=== PATIENT | female | born 1925 | race Caucasian/White ===

== ENCOUNTER → 2016-03-04 | Outpatient (CLI) | payer MEDICARE, OTHER | LOC: GMA 15:12 | PROVIDERS: ATTEND Nurse Practitioner Family | DX: L65.9 Nonscarring hair loss, unspecified (principal) ==

== ENCOUNTER → 2016-03-05 | Outpatient (CLI) | payer MEDICARE, OTHER ==
--- NOTE | 2016-03-05 09:27 | US ---
EXAM DESCRIPTION: US ABDOMEN CLINICAL HISTORY: GENERAL ABD PAIN COMPARISON: March 05, 2016 TECHNIQUE: Complete abdominal ultrasound was performed utilizing grayscale, color Doppler and spectral Doppler imaging. [employer] static images were saved to the patient's medical record. 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 It measures 2.5 cm in diameter. The liver is echogenic, but normal in size. No hepatic mass noted. Small cyst seen measuring 11 mm within the right hepatic lobe. Portal vein demonstrates normal directional flow. Common bile duct is prominent measuring 9 mm. The gallbladder is not visualized on today's study. Right kidney measures 9.2 cm in diameter. There is a lower pole 1.6 cm benign renal cyst noted. The spleen measures 10 cm in diameter. It is unremarkable. The left kidney is unremarkable except for a benign appearing 1.2 cm lower pole renal cyst. IMPRESSION: Today's exam demonstrates an echogenic liver compatible with fatty infiltration. Gallbladder has been removed. The common bile duct is prominent on today's exam measuring 9 mm in diameter. This can be seen in a post cholecystectomy state. 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 It measures 2.5 cm in diameter. Electronically signed by: Cory Andre MD 03/05/2016 09:25
== END ==
LOC: US 08:10
PROVIDERS: ATTEND Nurse Practitioner Family
DX: R10.84 Generalized abdominal pain (principal); I77.811 Abdominal aortic ectasia; Z90.49 Acquired absence of other specified parts of digestive tract

== ENCOUNTER → 2016-03-26 | Outpatient (CLI) | payer MEDICARE, OTHER | END | disposition home or self-care (01) | LOC: GMAL 11:29 | PROVIDERS: ATTEND Family Medicine | DX: E83.42 Hypomagnesemia (principal) ==

== ENCOUNTER → 2016-03-30 | Outpatient (CLI) | payer MEDICARE, OTHER ==
--- NOTE | 2016-03-31 09:48 | MAM ---
EXAM DESCRIPTION: MAMMO BREAST SCREENING BILATERAL CAD, images were reviewed with CAD technology, R2 computer-aided detection. CLINICAL HISTORY: [facility]. COMPARISON: 2012 and 2014. FINDINGS: Routine views are obtained. Scattered glandular pattern with the increased mammographic density. Stable retroareolar density on the left. No dominant mass, architectural distortion or clustered microcalcification.. IMPRESSION: Benign exam. BIRAD CATEGORY: 2 BENIGN RECOMMENDATIONS: FOLLOW-UP: Routine screening mammogram in one year. According to the [employer], yearly mammograms are recommended starting at age 40 and continuing as long as a woman is in good health. Any breast change noted on a breast self-exam should be reported promptly to the patient's healthcare provider. Breast MRI is recommended for women with an approximately 20-25% or greater lifetime risk of breast cancer, including women with a strong family history of breast or ovarian cancer and women who have been treated for Hodgkin's disease. Electronically signed by: Kristina Rose 03/31/2016 09:45
== END | disposition home or self-care (01) ==
LOC: MAMMO 15:14
PROVIDERS: ATTEND Surgery
DX: Z12.31 Encounter for screening mammogram for malignant neoplasm of breast (principal)
CPT/HCPCS: 77067; G0202

== ENCOUNTER 2016-05-30 13:15 | Emergency (ER) | payer MEDICARE, OTHER ==
--- NOTE | 2016-05-30 13:33 | ED.PDOC ---
History of Present Illness - General Chief Complaint: Abdominal Pain Time Seen by Provider: 05/30/16 13:25 Source: patient Exam Limitations: no limitations - History of Present Illness Initial Comments: Patient complains of a sudden onset of abdominal pain for 6 hours. It is generalized, constant, non-radiating, cramping, worse with movement and eating, better with rest. Had a bowel movement after onset but that had no effect. No melena. No N/V. No previous episodes. No associated sx. Patient denies cardiac history. However, she has a pacemaker and is on Plavix for that. No hx of CVA or blood clots. Has dyslipidemia and smokes 1/2 ppd for "years". No alcohol nor recreational drugs. No hx of DM. She says she has an aneurysm in her "stomach". No other complaints. Timing/Duration: 4-6 hours Severity: moderate Improving Factors: rest Worsening Factors: eating, movement Associated Symptoms: denies symptoms Allergies/Adverse Reactions: Allergies Sulfa Drugs Allergy (Verified 08/25/15 03:59) Home Medications: Ambulatory Orders ALPRAZolam [Xanax] 0.25 mg PO BID 09/26/12 Amlodipine Besylate-Benazepril [Lotrel] 1 cap PO BID 09/26/12 Folic Gfgc-Gtqtcvwuql-Eoaaxzbt [Folbic 2.5-25-2 mg] 1 tab PO DAILY 09/26/12 Potassium Chloride [Micro-K] 10 meq PO DAILYBK 09/26/12 Rosuvastatin Calcium [Crestor] 10 mg PO HS 09/26/12 Aspirin 81 mg PO DAILY 01/12/13 Clopidogrel Bisulfate [Plavix] 75 mg PO DAILY 01/12/13 Famotidine [Pepcid] 20 mg PO ACBK PRN 01/12/13 Isosorbide Mononitrate [Imdur] 20 mg PO DAILY 01/12/13 Metoprolol Succinate [Metoprolol Succinate ER] 100 mg PO DAILY 01/12/13 Anastrozole [Arimidex] 1 mg PO DAILY 10/18/13 Ranolazine [Ranexa] 500 mg PO DAILY 10/18/13 Acetaminophen W/ Codeine [Tylenol W/ CODEINE #3] 1 ea PO Q6H #30 09/26/14 Cyclobenzaprine HCl [Flexeril] 10 mg PO TID #15 tab 09/26/14 Review of Systems - Review of Systems Constitutional: States: no symptoms reported EENTM: States: no symptoms reported Respiratory: States: no symptoms reported Cardiology: States: no symptoms reported Gastrointestinal/Abdominal: States: see HPI Genitourinary: States: no symptoms reported Musculoskeletal: States: no symptoms reported Skin: States: no symptoms reported Neurological: States: no symptoms reported Endocrine: States: no symptoms reported Hematologic/Lymphatic: States: no symptoms reported Past Medical History (General) - Patient Medical History Hx Seizures: No Hx Stroke: No Hx Dementia: No Hx Asthma: No Hx of COPD: No Hx Cardiac Disorders: Yes Hx Congestive Heart Failure: No Hx Pacemaker: No Hx Hypertension: Yes Hx Thyroid Disease: No Hx Diabetes: No Hx Gastroesophageal Reflux: Yes Hx Renal Disease: No Hx Cancer: No Hx of HIV: No Hx Hepatitis C: No Hx MRSA: No - Vaccination History Hx Influenza Vaccination: No Hx Pneumococcal Vaccination: No - Social History Hx Tobacco Use: No Hx Alcohol Use: No Hx Substance Use: No Hx Substance Use Treatment: No Hx Depression: No Hx Physical Abuse: No Hx Emotional Abuse: No Family Medical History - Family History Father Living Status: Hx Family Hypertension: Yes Mother Living Status: Hx Family Cancer: Yes Physical Exam - Physical Exam General Appearance: Alert Eye Exam: bilateral normal Ears, Nose, Throat: normal ENT inspection Neck: non-tender, full range of motion, supple Respiratory: other - distant breath sounds Cardiovascular/Chest: regular rate, rhythm Peripheral Pulses: radial,right: 2+, radial,left: 2+, dorsalis pedis,right: 2+, dorsalis pedis,left: 2+ Gastrointestinal/Abdominal: normal bowel sounds, guarding, other - pain worsens with cough Back Exam: no CVA tenderness Extremity: normal inspection, no pedal edema Neurologic: no motor/sensory deficits Skin Exam: normal color Lymphatic: no adenopathy Progress - Progress Progress: 05/30/16 15:42 CT abdomen/pelvis showed no acute disease. Stable AAA. Patient received nitropaste 1 inch x one. Cardiac enzymes were negative and EKG showed ventricular pacemaker. Patient's pain resolved while in the ER. Discharged with orders to follow up with pcp. May try prilosec bid. Laboratory Tests 05/30/16 05/30/16 05/30/16 13:32 13:37 14:40 WBC 8.1 RBC 4.63 Hgb 13.9 Hct 41.6 MCV 90.0 MCH 30.1 MCHC 33.4 RDW 14.2 Plt Count 163 MPV 12.5 H Absolute Neuts (auto) 4.80 Absolute Lymphs (auto) 2.20 Absolute Monos (auto) 0.90 H Absolute Eos (auto) 0.20 Absolute Basos (auto) 0.10 Neutrophils % 58.9 Lymphocytes % 27.0 Monocytes % 10.6 H Eosinophils % 2.7 Basophils % 0.8 PT 11.0 INR 0.970 PTT (SP) 28.3 Sodium 135 Potassium 3.8 Chloride 101 Carbon Dioxide 25 Anion Gap 12.8 BUN 23 H Creatinine 0.81 BUN/Creatinine Ratio 28.4 H Random Glucose 100 Serum Osmolality 273.9 L Lactic Acid 1.1 Calcium 9.8 Total Bilirubin 0.5 AST 27 ALT 18 Alkaline Phosphatase 69 Creatine Kinase 53 CK-MB (CK-2) 2.4 CK-MB (CK-2) % Not Reportable Troponin I < 0.02 B-Natriuretic Peptide 913.0 H* Serum Total Protein 7.3 Albumin 3.6 Globulin 3.7 H Albumin/Globulin Ratio 1.0 L Lipase 39 Urine Color Yellow Urine Appearance Clear Urine pH 7.0 Ur Specific [place] 1.015 Urine Protein Negative Urine Glucose (UA) Negative Urine Ketones Negative Urine Blood Trace-intact H Urine Nitrite Negative Urine Bilirubin Negative Urine Urobilinogen 0.2 Ur Leukocyte Esterase Negative Urine RBC 0-1 Urine WBC 0 Ur Epithelial Cells 0 Urine Bacteria 0 Departure - Departure Clinical Impression: Abdominal pain Disposition: Discharge to Home or Self Care Condition: Good Diet: resume usual diet Activity: increase activity as tolerated Home Medications: Ambulatory Orders ALPRAZolam [Xanax] 0.25 mg PO BID 09/26/12 Amlodipine Besylate-Benazepril [Lotrel] 1 cap PO BID 09/26/12 Folic Kkvx-Yzhfpdpdrh-Qhylnedg [Folbic 2.5-25-2 mg] 1 tab PO DAILY 09/26/12 Potassium Chloride [Micro-K] 10 meq PO DAILYBK 09/26/12 Rosuvastatin Calcium [Crestor] 10 mg PO HS 09/26/12 Aspirin 81 mg PO DAILY 01/12/13 Clopidogrel Bisulfate [Plavix] 75 mg PO DAILY 01/12/13 Famotidine [Pepcid] 20 mg PO ACBK PRN 01/12/13 Isosorbide Mononitrate [Imdur] 20 mg PO DAILY 01/12/13 Metoprolol Succinate [Metoprolol Succinate ER] 100 mg PO DAILY 01/12/13 Anastrozole [Arimidex] 1 mg PO DAILY 10/18/13 Ranolazine [Ranexa] 500 mg PO DAILY 10/18/13 Acetaminophen W/ Codeine [Tylenol W/ CODEINE #3] 1 ea PO Q6H #30 09/26/14 Cyclobenzaprine HCl [Flexeril] 10 mg PO TID #15 tab 09/26/14 Additional Instructions: May try Prilosec as directed on the box. Follow up with your primary care physician next week. Return to the ER if pain recurs.
[2016-05-30 13:41] VITALS: TEMP 98.3
[2016-05-30] MEDS ORDERED: NITROGLYCERIN 2% 1 GM UD TOP ONE ×2 (13:53)
--- NOTE | 2016-05-30 13:56 | RAD ---
PROCEDURE: XR CHEST 1 VIEW HISTORY: abdominal pain, cardiac risk factors COMPARISON: 01/22/2015 TECHNIQUE: Single projection of the chest was done. FINDINGS: There is stable position of the dual chamber left-sided pacemaker wires. Extensive calcification involving the thoracic and the visualized abdominal aorta is noted . There are no discrete airspace infiltrates, pneumothoraces or pleural effusions. The pulmonary vascularity is normal. The cardiomediastinal silhouette is stable. IMPRESSION: There is no acute pleural-parenchymal process seen in the imaged lung braden. Location of Interpretation: [facility] Electronically signed by: Robin Caicedo MD 05/30/2016 1:55 PM CDT
--- NOTE | 2016-05-30 14:54 | CT ---
PROCEDURE: Abdomen/Pelvis w/wo Contrast Clinical History: abdominal pain, hx of AAA Indication: Same as above. Comparison: 09/26/2012. Technique: CT of the abdomen and pelvis was done without and with intravenous contrast, followed by orthogonal reconstructions. Oral contrast was not given for the study. The patient was injected with contrast intravenously, without any documented immediate adverse reactions. This exam was performed according to our departmental dose-optimization program, which includes automated exposure control, adjustment of the mA and/or KV according to the patient's size and/or use of iterative reconstruction technique. Findings: Images through the lung bases do not show any focal infiltrates or pleural effusions. The pancreas, spleen and the bilateral adrenal glands appear unremarkable. The gallbladder is surgically absent. There is presence of a 9 mm benign cyst in the subdiaphragmatic surface of the left lobe of the liver. There is presence of a small hiatal hernia There is no CT evidence of urinary tract calculi or urinary tract obstruction. Note is made of multiple subcentimeter hyperdense cysts in the left kidney. Benign appearing multiple cortical cysts are also seen in the bilateral kidneys. The bilateral kidneys enhance with contrast in a normal fashion, without any evidence of hydronephrosis on either side. The bilateral ureters and the bilateral periureteral soft tissues and fat planes are unremarkable. There is no evidence of hydroureter on either side. The urinary bladder is unremarkable . The small bowel appears unremarkable, without any evidence of small bowel obstruction or bowel wall thickening. There is no CT evidence of acute appendicitis, pericecal inflammatory change or ileocecal mesenteric adenitis. The ileocecal junction appears unremarkable. There is no CT evidence of acute colonic diverticulitis or colitis or large bowel obstruction. The splenic and portal veins are of normal caliber, without any filling defects. There is no pathological lymphadenopathy in the retroperitoneum or in the pelvic region. There is no evidence of free fluid or free air in the abdomen or the pelvic region.. There is presence of nonunited fractures of the right superior and inferior pubic rami in the vicinity of the pubic symphysis. Extensive degenerative changes are seen throughout the lumbar spine with grade 1 anterolisthesis of L4 at L5 Significant vascular wall calcifications are seen in the abdomen and the pelvis. There is a 3.6 x 2.5 cm infrarenal abdominal aortic aneurysm There is no clinically significant inguinal or ventral hernia. There are no significant acute abnormalities of the bony structures of the abdomen and pelvic region. The paravertebral soft tissues are unremarkable. The remainder of the pelvic structures are unremarkable. Impression: There is presence of a 9 mm benign cyst in the subdiaphragmatic surface of the left lobe of the liver. There is presence of a small hiatal hernia Note is made of multiple subcentimeter hyperdense cysts in the left kidney. These cysts can be followed up with ultrasound examination in three months interval. Benign appearing multiple cortical cysts are also seen in the bilateral kidneys. The bilateral kidneys otherwise enhance with contrast in a normal fashion, without any evidence of hydronephrosis on either side. There is presence of nonunited fractures of the right superior and inferior pubic rami in the vicinity of the pubic symphysis. Extensive degenerative changes are seen throughout the lumbar spine with grade 1 anterolisthesis of L4 at L5 There is a 3.6 x 2.5 cm infrarenal abdominal aortic aneurysm AAA Size: Follow-up Recommendation : 3.5-3.9 cm Every 1 year Location of Interpretation: [facility] Electronically signed by: Robin Caicedo MD 05/30/2016 2:52 PM CDT
[2016-05-30 15:57] VITALS: BP 165/70; O2SAT 96
== END 2016-05-30 15:57 | disposition home or self-care (01) ==
LOC: ER 13:15
DX: R10.9 Unspecified abdominal pain (principal); I10 Essential (primary) hypertension; K21.9 Gastro-esophageal reflux disease without esophagitis; E78.5 Hyperlipidemia, unspecified; F17.200 Nicotine dependence, unspecified, uncomplicated; Z95.0 Presence of cardiac pacemaker; Z79.82 Long term (current) use of aspirin; Z79.899 Other long term (current) drug therapy; Z88.8 Allergy status to other drugs, medicaments and biological substances; Z79.02 Long term (current) use of antithrombotics/antiplatelets